=== PATIENT | female | born 1975 | race Two or more races ===

== ENCOUNTER 2021-05-02 21:57 | Emergency (ER) | payer OTHER ==
[~2021-05-02] VITALS: Ht 149.9 cm; Wt 113.4 kg
[2021-05-03] MEDS ORDERED: BUDESONIDE0.5 MG/2 M IH (03:29)
[2021-05-03] MEDS ORDERED: ZYNCOF 20-400120 ML PO (03:29)
[2021-05-03] MEDS ORDERED: ALBUTEROL2.5 MG/3 M IH (03:29)
== END 2021-05-03 03:40 ==
LOC: ER 21:57
DX: U07.1 COVID-19 (principal); J45.901 Unspecified asthma with (acute) exacerbation